=== PATIENT | female | born 1965 | race Caucasian/White ===

== ENCOUNTER 2019-07-20 10:06 | Emergency (ER) | payer SELFPAY ==
[2019-07-20] MEDS: Sodium Chloride 0.9% 1,000 ML IV SCH (10:54)
[2019-07-20] MEDS: Ondansetron 4 MG/2 ML SDV IVPUSH ONE (10:54)
--- NOTE | 2019-07-20 11:13 | EDM.PDOC ---
ED HPI GENERAL MEDICAL PROBLEM - General Chief Complaint: Abdominal Pain Stated Complaint: HIGH BP/DIARRHEA Time Seen by Provider: 07/20/19 10:30 Source of Information: Reports: Patient History Limitations: Reports: No Limitations - History of Present Illness INITIAL COMMENTS - FREE TEXT/NARRATIVE: Patient presents with complaints of stomach pain, nausea, vomiting and diarrhea. States started feeling general malaise around 2230, started vomiting and had approximately 10 episodes of vomiting and loose stools. Continues to have ongoing stomach pain, vomiting stopped around 0430. Has not tried to eat or drink since that time as concerned about starting to vomit again. 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 No unusual food intake over the last 2 days. No fevers. Denies cough, chest congestion or pain. Onset: Gradual Duration: Hour(s):, Waxing/Waning Location: Reports: Abdomen Quality: Reports: Ache Severity: Moderate Improves with: Reports: Rest Associated Symptoms: Reports: Nausea/Vomiting, Weakness. Denies: Fever/Chills, Shortness of Breath Abdominal Pain Score (Numeric/FACES): 5 - Related Data Allergies Allergy/AdvReac Type Severity Reaction Status Date / Time No Known Allergies Allergy Verified 07/20/19 10:37 Home Meds: Home Meds Ibuprofen [Advil Migraine] 200 mg PO ASDIRECTED PRN 07/20/19 [History] Past Medical History - Past Health History Medical/Surgical History: Denies Medical/Surgical History - Past Surgical History Female Surgical History: Reports: Hysterectomy Social & Family History - Tobacco Use Smoking Status *Q: Former Smoker Years of Tobacco use: 5 Packs/Tins Daily: 0.5 Used Tobacco, but Quit: Yes Month/Year Tobacco Last Used: 07/2019 - Recreational Drug Use Recreational Drug Use: No ED ROS GENERAL - Review of Systems Review Of Systems: See Below Constitutional: Reports: Malaise, Weakness, Fatigue, Decreased Appetite. Denies : Fever, Chills HEENT: Denies: Ear Pain, Sinus Problem, Throat Pain Respiratory: Denies: Shortness of Breath, Cough Cardiovascular: Denies: Chest Pain, Edema, Lightheadedness Endocrine: Reports: Fatigue GI/Abdominal: Reports: Abdominal Pain, Diarrhea, Nausea, Vomiting : Reports: No Symptoms Musculoskeletal: Reports: No Symptoms Skin: Reports: No Symptoms Neurological: Reports: No Symptoms Psychiatric: Reports: No Symptoms ED EXAM, GI/ABD - Physical Exam Exam: See Below Exam Limited By: No Limitations General Appearance: Alert, WD/WN, Mild Distress Ears: Normal External Exam, Normal TMs Nose: Normal Inspection, Normal Mucosa, No Blood Throat/Mouth: Normal Inspection, Normal Oropharynx, Other (mucous membranes are moist) Head: Normocephalic Respiratory/Chest: No Respiratory Distress, Lungs Clear, Normal Breath Sounds Cardiovascular: Regular Rate, Rhythm GI/Abdominal Exam: Normal Bowel Sounds, Soft, Non-Tender Neurological: Alert, Oriented Skin Exam: Warm, Dry Course - Vital Signs Last Recorded V/S: Last Vital Signs Temp 98.1 F 07/20/19 11:32 Pulse 82 07/20/19 11:32 Resp 16 07/20/19 11:32 BP 140/75 07/20/19 11:32 Pulse Ox 96 07/20/19 11:32 - Orders/Labs/Meds Orders: Active Orders 24 hr Category Date Time Status Sodium Chloride 0.9% [Normal Saline] 1,000 ml Med 07/20/19 10:45 Active IV ASDIRECTED Medication Orders Sodium Chloride (Normal Saline) 1,000 mls @ 250 mls/hr IV ASDIRECTED TASH Last Admin: 07/20/19 10:54 Dose: 150 mls/hr Labs: Laboratory Tests 07/20/19 07/20/19 07/20/19 Range/Units 10:52 10:52 11:01 WBC 11.2 H (4.0-10.0) x10^3/uL RBC 4.95 (4.00-5.50) x10^6/uL Hgb 14.6 (12.0-16.0) g/dL Hct 43.4 (33.0-47.0) % MCV 87.7 (78.0-93.0) fL MCH 29.5 (26.0-32.0) pg MCHC 33.6 (32.0-36.0) g/dL RDW Coeff of Makenzie 13.2 (10.0-15.0) % Plt Count 199 (130-400) x10^3/uL Neut % (Auto) 85.2 H (50.0-80.0) % Lymph % (Auto) 10.1 L (25.0-50.0) % [place] % (Auto) 3.7 (2.0-11.0) % Eos % (Auto) 0.8 (0.0-4.0) % Baso % (Auto) 0.2 (0.2-1.2) % Sodium 137 (136-145) mmol/L Potassium 4.3 (3.5-5.1) mmol/L Chloride 101 (98-107) mmol/L Carbon Dioxide 26 (21-32) mmol/L Anion Gap 14.3 (10-20) mmol/L BUN 17 (7-18) mg/dL Creatinine 1.0 (0.55-1.02) mg/dL Est Cr Clr Drug Dosing 45.66 mL/min Estimated GFR (MDRD) 58 Glucose 84 (74-106) mg/dL Calcium 9.2 (8.5-10.1) mg/dL Corrected Calcium 9.44 (8.5-10.1) mg/dL Total Bilirubin 0.7 (0.2-1.0) mg/dL AST 23 (15-37) U/L ALT 30 (14-59) U/L Alkaline Phosphatase 115 (46-116) U/L C-Reactive Protein 4.6 H (<=0.9) mg/dL Total Protein 8.0 (6.4-8.2) g/dL Albumin 3.7 (3.4-5.0) g/dL Globulin 4.3 Albumin/Globulin Ratio 0.86 Urine Color Yellow (YELLOW) Urine Appearance Slightly cloudy H (CLEAR) Urine pH 6.5 (5.0-8.0) Ur Specific [place] 1.015 Urine Protein Negative (NEGATIVE) mg/dL Urine Glucose (UA) Negative (NEGATIVE) mg/dL Urine Ketones Negative (NEGATIVE) mg/dL Urine Occult Blood Moderate H (NEGATIVE) Urine Nitrite Negative (NEGATIVE) Urine Bilirubin Negative (NEGATIVE) Urine Urobilinogen 0.2 (0.2) EU/dL Ur Leukocyte Esterase Negative (NEGATIVE) Urine RBC 5-10 H (NOT SEEN) /HPF Urine WBC 0-5 (NOT SEEN) /HPF Ur Squamous Epith Cells Rare (NEGATIVE) /HPF Urine Bacteria Few H (NEGATIVE) /HPF Urine Mucus Few H (NEGATIVE) /LPF Meds: Medications Generic Name Dose Route Start Last Admin Trade Name Freq PRN Reason Stop Dose Admin Sodium Chloride 1,000 mls @ 250 mls/hr 07/20/19 10:45 07/20/19 10:54 Normal Saline IV 150 mls/hr ASDIRECTED TASH Administration Discontinued Medications Generic Name Dose Route Start Last Admin Trade Name Ute PRN Reason Stop Dose Admin Ondansetron HCl 4 mg 07/20/19 10:36 07/20/19 10:54 Zofran IVPUSH 07/20/19 10:37 4 mg ONETIME ONE Administration - Re-Assessments/Exams Free Text/Narrative Re-Assessment/Exam: 07/20/19 11:25 Patient is feeling better. STates zofran settled stomach down. WBC mildly elevated at 12.5, CRP 4.6. IV fluids infusing. Departure - Departure Time of Disposition: 12:09 Disposition: Home, Self-Care 01 Condition: Fair Clinical Impression: Gastroenteritis - Discharge Information *PRESCRIPTION DRUG MONITORING PROGRAM REVIEWED*: No *COPY OF PRESCRIPTION DRUG MONITORING REPORT IN PATIENT SB: No Referrals: PCP,None [Primary Care Provider] - Forms: ED Department Discharge Additional Instructions: 1. Rest 2. Push fluids 3. Tylenol for headache or discomfort 4. Zofran 4 mg every 6 hours for nausea 5. [place] diet 6. Follow up with primary care provider as needed for ongoing concerns. Sepsis Event Note - Evaluation Sepsis Screening Result: No Definite Risk - Focused Exam Vital Signs: Vital Signs Temp Pulse Resp BP Pulse Ox 07/20/19 11:32 98.1 F 82 16 140/75 96 07/20/19 10:34 97.1 F 87 16 132/87 96 Date Exam was Performed: 07/20/19 Time Exam was Performed: 12:09 - My Orders Last 24 Hours: My Active Orders 07/20/19 10:45 Sodium Chloride 0.9% [Normal Saline] 1,000 ml IV ASDIRECTED - Assessment/Plan Last 24 Hours: My Active Orders 07/20/19 10:45 Sodium Chloride 0.9% [Normal Saline] 1,000 ml IV ASDIRECTED
[2019-07-20 11:21] LABS: ANION GAP 14.3 mmol/L (10-20)
== END 2019-07-20 13:05 | disposition home or self-care (01) ==
LOC: VM.ED 10:06
DX: K52.9 Noninfective gastroenteritis and colitis, unspecified (principal); Z87.891 Personal history of nicotine dependence
CPT/HCPCS: 80053; 81001; 85025; 86140; 96361; 96374; 99283-GF; 99284-25; J2405; J7030

== ENCOUNTER 2023-02-22 16:06 | Emergency (ER) | payer OTHER ==
[2023-02-22] MEDS ORDERED: Ketorolac 30 MG/ML SDV IVPUSH ONE (16:20)
[2023-02-22] MEDS ORDERED: Ketorolac 30 MG/ML SDV IM ONE (16:30)
== END 2023-02-22 16:48 | disposition home or self-care (01) ==
LOC: VM.ED 16:06
DX: S82.892A Other fracture of left lower leg, initial encounter for closed fracture (principal); X50.0XXA Overexertion from strenuous movement or load, initial encounter
CPT/HCPCS: 73610; 96372; 99283; J1885